=== PATIENT | female | born 1965 | race Caucasian/White ===

== ENCOUNTER → 2017-10-20 | Outpatient (CLI) | payer BC ==
--- NOTE | 2017-10-21 10:42 | MM ---
Reason for exam: screening (asymptomatic). Last mammogram was performed 1 year and 4 months ago. History: Family history of breast cancer in maternal aunt and breast cancer in aunt. Cyst aspiration of both breasts, 2005. Took hormonal contraceptives for 3 months. Physical Findings: A clinical breast exam by your physician is recommended on an annual basis and results should be correlated with mammographic findings. MG Screening Mammo w CAD Bilateral CC and MLO view(s) were taken. Prior study comparison: June 11, 2016, bilateral MG screening mammo w CAD. December 23, 2009, bilateral digital screening mammogram. The breast tissue is heterogeneously dense. This may lower the sensitivity of mammography. Finding: There are typically benign round calcifications in the anterior position of the right breast. There is no discrete abnormality. ASSESSMENT: Benign, BI-RAD 2 RECOMMENDATION: Routine screening mammogram of both breasts in 1 year.
== END | disposition home or self-care (01) ==
LOC: RADMAMWWP 14:55
PROVIDERS: ATTEND Family Medicine
DX: Z12.31 Encounter for screening mammogram for malignant neoplasm of breast (principal)
CPT/HCPCS: 77067

== ENCOUNTER 2017-11-09 08:58 | Day surgery (SDC) | payer BC ==
[2017-11-07 12:57] VITALS: BMI 23.6
--- NOTE | 2017-11-09 08:10 | P.GSHP ---
History of Present Illness H&P Date: 11/09/17 CHIEF COMPLAINT: Colon screen HISTORY OF PRESENT ILLNESS: The patient is a 52-year-old female who presents for colon screen. Lower endoscopy was offered for further evaluation and management. PAST MEDICAL HISTORY: Please see list. PAST SURGICAL HISTORY: Please see list. MEDICATIONS: Please see list. ALLERGIES: Please see list. SOCIAL HISTORY: No illicit drug use FAMILY HISTORY: No reports of Crohn disease or ulcerative colitis. REVIEW OF ORGAN SYSTEMS: CONSTITUTIONAL: No reports of fevers or chills. PHYSICAL EXAM: VITAL SIGNS: Stable GENERAL: Well-developed pleasant in no acute distress. HEENT: No scleral icterus. Extraocular movements grossly intact. Moist buccal mucosa. NECK: Supple without lymphadenopathy. CHEST: Unlabored respirations. Equal bilateral excursions. CARDIOVASCULAR: Regular rate and rhythm. Distal 2+ pulses. ABDOMEN: Soft, nontender, nondistended. MUSCULOSKELETAL: No clubbing, cyanosis, or edema. ASSESSMENT: 1. Colon screen. PLAN: 1. Recommend proceeding with a lower endoscopy Past Medical History Past Medical History: GERD/Reflux Additional Past Medical History / Comment(s): MIGRAINE HEADACHE History of Any Multi-Drug Resistant Organisms: None Reported Additional Past Surgical History / Comment(s): LAPAROTOMY, CYST REMOVED FROM FLANK AREA Past Anesthesia/Blood Transfusion Reactions: No Reported Reaction Smoking Status: Former smoker - Past Family History Mother Family Medical History: Cancer Additional Family Medical History / Comment(s): MELENOMA Medications and Allergies Home Medications Medication Instructions Recorded Confirmed Type Citalopram Hydrobromide [CeleXA] 40 mg PO HS 11/07/17 11/07/17 History Ibuprofen [Motrin] 200 mg PO Q6HR PRN 11/07/17 11/07/17 History Allergies Allergy/AdvReac Type Severity Reaction Status Date / Time Sulfa (Sulfonamide Allergy Swelling Verified 11/07/17 12:36 Antibiotics)
[~2017-11-09 08:58] MED LIST: LACTATED RINGERS 1,000 ML IV SCH; LIDOCAINE 1% 20 ML VIAL (10MG/ML) FOR IV START INTRADERMA PRN
[2017-11-09 09:39] VITALS: RESP 16; TEMP 97.3
[2017-11-09] MEDS ORDERED: PROPOFOL 10 MG/ML 20 ML VIAL IV ONE (10:14)
--- NOTE | 2017-11-09 10:41 | P.PCN ---
Date of Procedure: 11/09/17 Description of Procedure: PREOPERATIVE DIAGNOSIS: Colonoscopy screening. Family history of colon polyps, father POSTOPERATIVE DIAGNOSIS: Colonoscopy screening. Family history of colon polyps, father OPERATION: Colonoscopy to the ileocecal valve and appendiceal orifice. SURGEON: Dorie Carbajal MD. ANESTHESIA: MAC. INDICATIONS: The patient is a 52-year-old female who presents for her first colonoscopy screening. Benefits and risks were described and informed consent was obtained. DESCRIPTION OF PROCEDURE: The patient had undergone Gatorade, MiraLAX and Dulcolax prep. she had been brought into the operating room and laid in the left lateral decubitus position. After adequate intravenous sedation, the rectum was examined with 2% lidocaine jelly. No external hemorrhoids were encountered. The rectal tone was within normal limits. No lesions were palpated in the rectal vault. She had extremely redundant sigmoid colon requiring abdominal pressure including placing the patient in supine position to complete her procedure. An Olympus colonoscope was advanced until the ileocecal valve and appendiceal orifice were clearly viewed. The prep was excellent with clear visualization of the mucosal folds. The scope was removed with visualization of each mucosal fold. No scattered diverticulosis was encountered. No colonic polyps were found. No evidence of focal colitis was found. Retroflexion of the scope demonstrated grade 1 internal hemorrhoids without active bleeding or inflammation. The colon was desufflated. The patient had tolerated the procedure well. Withdrawal time was over 6 minutes. FINDINGS: Internal hemorrhoids, grade 1 No external prolapsed hemorrhoids. No arteriovenous malformations. No adenomatous polyps. No focal colitis. No sigmoid diverticulosis She had extremely redundant sigmoid colon requiring abdominal pressure including placing the patient in supine position to complete her procedure. RECOMMENDATIONS: Lower endoscopy every 5 years with family history of colon polyps or cancer, next 2022 Plan - Discharge Summary New Discharge Prescriptions: No Action Citalopram Hydrobromide [CeleXA] 40 mg PO HS Ibuprofen [Motrin] 200 mg PO Q6HR PRN PRN Reason: Pain Discharge Medication List Citalopram Hydrobromide [CeleXA] 40 mg PO HS 11/07/17 [History] Ibuprofen [Motrin] 200 mg PO Q6HR PRN 11/07/17 [History]
[2017-11-09 11:11] VITALS: BP 113/65; PULSE 74
== END 2017-11-09 11:44 | disposition home or self-care (01) ==
LOC: ORWHC2ENDO 08:58
PROVIDERS: ATTEND Surgery Plastic and Reconstructive Surgery
DX: Z12.11 Encounter for screening for malignant neoplasm of colon (principal); K64.0 First degree hemorrhoids; Q43.8 Other specified congenital malformations of intestine; Z83.71 Family history of colonic polyps; K21.9 Gastro-esophageal reflux disease without esophagitis; G43.909 Migraine, unspecified, not intractable, without status migrainosus; Z79.899 Other long term (current) drug therapy; Z88.2 Allergy status to sulfonamides; Z87.891 Personal history of nicotine dependence
CPT/HCPCS: 81025; J2704; G0105; 45378

== ENCOUNTER → 2018-05-16 | Outpatient (CLI) | payer BC ==
--- NOTE | 2018-05-16 11:56 | US ---
EXAMINATION TYPE: US abdomen complete DATE OF EXAM: 05/16/2018 COMPARISON: NONE CLINICAL HISTORY: R10.32 Left lower quadrant pain. Intermittent LLQ pain that is now gone EXAM MEASUREMENTS: Liver Length: 12.8 cm Gallbladder Wall: 0.2 cm CBD: 0.5 cm Spleen: 8.7 cm Right Kidney: 11.1 x 4.7 x 4.3 cm Left Kidney: 10.1 x 4.5 x 5.0 cm Pancreas: wnl Liver: wnl Gallbladder: wnl Evidence for sonographic Roy's sign: no CBD: wnl Spleen: wnl Right Kidney: 1.7cm inferior pole cyst Left Kidney: wnl Upper IVC: wnl Abd Aorta: wnl The liver is homogenous. The intrahepatic portion of the IVC and proximal abdominal aorta are within normal limits. There is no evidence of cholelithiasis. Common bile duct is unremarkable. The visu alized portions of the pancreas are homogenous. The spleen is unremarkable. Kidneys are symmetric a nd free of hydronephrosis. No renal lesions are seen. IMPRESSION: 1.7 cm left renal cyst, otherwise unremarkable abdominal ultrasound.
--- NOTE | 2018-05-16 12:04 | US ---
EXAMINATION TYPE: US pelvic complete DATE OF EXAM: 05/16/2018 COMPARISON: NONE CLINICAL HISTORY: R10.32 Left lower quadrant pain. intermittent LLQ pain, h/o endometriosis, left oop horectomy, not pain at time of exam, still having regular cycles, pending her cycle now TECHNIQUE: TA. Date of LMP: 04/06/2018 EXAM MEASUREMENTS: Uterus: 8.7 x 6.8 x 4.8 cm Endometrial Stripe: 1.1 cm Right Ovary: 2.4 x 1.8 x 1.4 cm Left Ovary: Surgically absent 1. Uterus: Retroverted wnl 2. Endometrium: wnl 3. Right Ovary: wnl 4. Left Ovary: Surgically absent 5. Bilateral Adnexa: wnl 6. Posterior cul-de-sac: wnl IMPRESSION: 1. Endometrium appears slightly thickened although suboptimally visualized on the transabdominal view only. Transvaginal could further assess this finding or sonohysterogram. 2. Surgical absence of the left ovary. No masses identified in the left adnexa. Right ovary appears u nremarkable.
== END | disposition home or self-care (01) ==
LOC: RADUSWWP 08:53
PROVIDERS: ATTEND Family Medicine
DX: N28.1 Cyst of kidney, acquired (principal); Z90.721 Acquired absence of ovaries, unilateral
CPT/HCPCS: 76700; 76856

== ENCOUNTER → 2018-10-31 | Outpatient (CLI) | payer BC ==
--- NOTE | 2018-11-01 10:46 | MM ---
Reason for exam: screening (asymptomatic). Last mammogram was performed 1 year ago. History: Family history of breast cancer in maternal aunt and breast cancer in aunt. Cyst aspiration of both breasts, 2005. Took hormonal contraceptives for 3 months. Physical Findings: A clinical breast exam by your physician is recommended on an annual basis and results should be correlated with mammographic findings. MG 3D Screening Mammo W/Cad Bilateral CC and MLO view(s) were taken. Prior study comparison: October 20, 2017, bilateral MG screening mammo w CAD. June 11, 2016, bilateral MG screening mammo w CAD. The breast tissue is heterogeneously dense. This may lower the sensitivity of mammography. There is no discrete abnormality. No significant changes when compared with prior studies. ASSESSMENT: Negative, BI-RAD 1 RECOMMENDATION: Routine screening mammogram of both breasts in 1 year.
== END | disposition home or self-care (01) ==
LOC: RADMAMWWP 12:43
PROVIDERS: ATTEND Family Medicine
DX: Z12.31 Encounter for screening mammogram for malignant neoplasm of breast (principal)
CPT/HCPCS: 77063; 77067

== ENCOUNTER → 2020-03-28 | Outpatient (CLI) | payer BC ==
--- NOTE | 2020-03-31 08:46 | MM ---
Reason for exam: screening (asymptomatic). Last mammogram was performed 1 year and 5 months ago. History: Family history of breast cancer in maternal aunt and breast cancer in aunt. Cyst aspiration of both breasts, 2005. Took hormonal contraceptives for 3 months. Physical Findings: A clinical breast exam by your physician is recommended on an annual basis and results should be correlated with mammographic findings. MG 3D Screening Mammo W/Cad Bilateral CC and MLO view(s) were taken. Prior study comparison: October 31, 2018, bilateral MG 3d screening mammo w/cad. October 20, 2017, bilateral MG screening mammo w CAD. The breast tissue is heterogeneously dense. This may lower the sensitivity of mammography. Benign appearing calcifications in the right breast. No significant changes when compared with prior studies. ASSESSMENT: Benign, BI-RAD 2 RECOMMENDATION: Routine screening mammogram of both breasts in 1 year.
== END | disposition home or self-care (01) ==
LOC: RADMAMWWP 10:08
PROVIDERS: ATTEND Family Medicine
DX: Z12.31 Encounter for screening mammogram for malignant neoplasm of breast (principal)
CPT/HCPCS: 77063; 77067

== ENCOUNTER → 2020-08-27 | Outpatient (CLI) | payer BC | END | disposition home or self-care (01) | LOC: LABWHC1 13:40 | PROVIDERS: ATTEND Family Medicine | DX: U07.1 COVID-19 (principal) | CPT/HCPCS: U0003; U0005 ==

== ENCOUNTER → 2021-12-15 | Outpatient (CLI) | payer BC ==
--- NOTE | 2021-12-16 07:47 | MM ---
Reason for Exam: Screening (asymptomatic). Last mammogram was performed 1 year(s) and 8 month(s) ago. Patient History: Menarche at age 14. First Full-Term at age 18. Postmenopausal. Hormonal Contraceptives for 3 months. 2005, Bilateral Cyst Aspiration. Maternal aunt had breast cancer under age 50. Maternal aunt had breast cancer. Maternal grandmother had breast cancer at or over age 50. Risk Values: Rebecca 5 year model risk: 0.8%. NCI Lifetime model risk: 5.2%. Prior Study Comparison: 10/20/2017 Bilateral Screening Mammogram, [facility]. 10/31/2018 Bilateral Screening Mammogram, [facility]. 03/28/2020 Bilateral Screening Mammogram, [facility]. Tissue Density: The breast tissue is heterogeneously dense. This may lower the sensitivity of mammography. Findings: Analyzed By CAD. There is no suspicious group of microcalcifications or new suspicious mass in either breast. Overall Assessment: Negative, BI-RAD 1 Management: Screening Mammogram of both breasts in 1 year. A clinical breast exam by your physician is recommended on an annual basis and results should be correlated with mammographic findings. Electronically signed and approved by: Popeye Perdue M.D. Radiologis
== END | disposition home or self-care (01) ==
LOC: RADMAMWWP 08:40
PROVIDERS: ATTEND Obstetrics & Gynecology
DX: Z12.31 Encounter for screening mammogram for malignant neoplasm of breast (principal); Z78.0 Asymptomatic menopausal state
CPT/HCPCS: 77063; 77067

== ENCOUNTER → 2023-06-15 | Outpatient (CLI) | payer OTHER ==
--- NOTE | 2023-06-15 08:31 | MM ---
Reason for Exam: Clinical finding. Last mammogram was performed 1 year(s) and 6 month(s) ago. Indicated Problems: Palpable abnormality of the left side for 9 Month(s). Patient History: Menarche at age 14. First Full-Term at age 18. Postmenopausal. Patient has history of breast feeding. Hormonal Contraceptives for 3 months. 2005, Bilateral Cyst Aspiration. Maternal aunt had breast cancer under age 50. Maternal aunt had breast cancer. Maternal grandmother had breast cancer at or over age 50. Risk Values: Rebecca 5 year model risk: 0.9%. NCI Lifetime model risk: 5.0%. Prior Study Comparison: 03/02/2005 Bilateral Screening Mammogram, [facility]. 05/18/2006 Bilateral Diagnostic Mammogram, [facility]. 05/18/2006 Left Diagnostic Ultrasound, [facility]. 12/23/2009 Bilateral Screening Mammogram, [facility]. 06/11/2016 Bilateral Screening Mammogram, [facility]. 10/20/2017 Bilateral Screening Mammogram, [facility]. 10/31/2018 Bilateral Screening Mammogram, [facility]. 03/28/2020 Bilateral Screening Mammogram, [facility]. 12/15/2021 Bilateral MG 3D screening mammo w/cad, [facility]. Tissue Density: The breast tissue is heterogeneously dense. This may lower the sensitivity of mammography. Findings: Analyzed By CAD. No evidence for distinct mass or distortion. No suspicious calcifications. Ultrasound of clinical area of concern left axilla. Overall Assessment: Incomplete: need additional imaging evaluation, BI-RAD 0 Management: Diagnostic Breast Ultrasound of the left breast. . Results were given to the patient verbally at the time of exam. Patient should continue monthly self-breast exams. A clinical breast exam by your physician is recommended on an annual basis. This exam should not preclude additional follow-up of suspicious palpable abnormalities. Note on Rebecca scores and lifetime risk: 1. A Rebecca score greater than 3% is considered moderate risk. If this is the case, consider specialist referral to assess eligibility for a risk reducing agent. 2. If overall lifetime risk for the development of breast cancer is 20% or higher, the patient may qualify for future screening with alternating mammogram and breast MRI. Electronically signed and approved by: Popeye Perdue M.D. Radiologis
--- NOTE | 2023-06-15 09:12 | USB ---
Reason for Exam: Clinical finding. Patient History: Menarche at age 14. First Full-Term at age 18. Postmenopausal. Patient has history of breast feeding. Hormonal Contraceptives for 3 months. 2005, Bilateral Cyst Aspiration. Maternal aunt had breast cancer under age 50. Maternal aunt had breast cancer. Maternal grandmother had breast cancer at or over age 50. Risk Values: Rebecca 5 year model risk: 0.9%. NCI Lifetime model risk: 5.0%. Technique: Method: Targeted. Prior Study Comparison: 10/31/2018 Bilateral Screening Mammogram, [facility]. 03/28/2020 Bilateral Screening Mammogram, [facility]. 12/15/2021 Bilateral MG 3D screening mammo w/cad, [facility]. Findings: The area of palpable concern of the left breast, the axilla of both breasts and the retroareolar of both breasts were scanned. Mildly prominent lymph node left axilla measures 1.2 x 0.8 cm.. Imaging of the right axilla reveals no evidence for adenopathy or mass. Overall Assessment: Probably benign, BI-RAD 3 Management: Diagnostic Breast Ultrasound of the left breast in 6 months. A clinical breast exam by your physician is recommended on an annual basis and results should be correlated with mammographic findings. This exam should not preclude additional follow-up of suspicious palpable abnormalities. Results were given to the patient verbally at the time of exam. Electronically signed and approved by: Popeye Perdue M.D. Radiologis
== END | disposition home or self-care (01) ==
LOC: RADMAMWWP 08:03
PROVIDERS: ATTEND Family Medicine
DX: R92.333 Mammographic heterogeneous density, bilateral breasts (principal); Z78.0 Asymptomatic menopausal state; Z80.3 Family history of malignant neoplasm of breast
CPT/HCPCS: 77062; 77066

== ENCOUNTER → 2023-12-19 | Outpatient (CLI) | payer OTHER ==
--- NOTE | 2023-12-19 09:16 | USB ---
Reason for Exam: Follow-up at short interval from prior study. Patient History: Menarche at age 14. First Full-Term at age 18. Postmenopausal. Patient has history of breast feeding. Hormonal Contraceptives for 3 months. 2005, Bilateral Cyst Aspiration. Maternal aunt had breast cancer under age 50. Maternal aunt had breast cancer. Maternal grandmother had breast cancer at or over age 50. Risk Values: Rebecca 5 year model risk: 0.9%. NCI Lifetime model risk: 5.0%. Technique: Method: Targeted. Prior Study Comparison: 03/28/2020 Bilateral Screening Mammogram, [facility]. 12/15/2021 Bilateral MG 3D screening mammo w/cad, [facility]. 06/15/2023 Bilateral MG 3D diag mammo w/cad [facility], [facility]. Findings: The area of palpable concern of the left breast, the axilla of the left breast and the retroareolar of the left breast were scanned. Mildly prominent lymph node left axilla is unchanged relative to the prior study and currently measures 1.3 x 0.6 cm versus 1.2 x 0.8 cm previously. Cortex is noted at 3 mm. Continued follow-up at 6 months advised. Overall Assessment: Probably benign, BI-RAD 3 Management: Diagnostic Breast Ultrasound of the left breast in 6 months. A clinical breast exam by your physician is recommended on an annual basis and results should be correlated with mammographic findings. This exam should not preclude additional follow-up of suspicious palpable abnormalities. Results were given to the patient verbally at the time of exam. Electronically signed and approved by: Popeye Perdue M.D. Radiologis
== END | disposition home or self-care (01) ==
LOC: RADUSWWP 08:40
PROVIDERS: ATTEND Family Medicine
DX: R92.8 Other abnormal and inconclusive findings on diagnostic imaging of breast (principal); Z78.0 Asymptomatic menopausal state; Z80.3 Family history of malignant neoplasm of breast; C50.912 Malignant neoplasm of unspecified site of left female breast

== ENCOUNTER → 2024-06-25 | Outpatient (CLI) | payer OTHER ==
--- NOTE | 2024-06-25 14:48 | USB ---
Reason for Exam: Follow-up at short interval from prior study. Patient History: Menarche at age 14. First Full-Term at age 18. Postmenopausal. Patient has history of breast feeding. Hormonal Contraceptives for 3 months. 2005, Bilateral Cyst Aspiration. Maternal aunt had breast cancer under age 50. Maternal aunt had breast cancer. Maternal grandmother had breast cancer at or over age 50. Risk Values: Rebecca 5 year model risk: 0.9%. NCI Lifetime model risk: 4.9%. Technique: Method: Targeted. Prior Study Comparison: 03/28/2020 Bilateral Screening Mammogram, [facility]. 12/15/2021 Bilateral MG 3D screening mammo w/cad, [facility]. 06/15/2023 Bilateral MG 3D diag mammo w/cad [facility], [facility]. Findings: The area of palpable concern of the left breast, the axilla of the left breast and the retroareolar of the left breast were scanned. In the subcutaneous region near is a slightly hypoechoic homogenous 0.9 x 0.4 x 0.4 cm nodule may be a small sebaceous cyst. Within the axillary region there is a 1.3 x 0.5 cm lymph node. The cortex 0.28 cm. This is been present previously. Overall Assessment: Benign, BI-RAD 2 Electronically signed and approved by: Bud Brody D.O. Radiologis
== END | disposition home or self-care (01) ==
LOC: RADUSWWP 14:10
PROVIDERS: ATTEND Family Medicine
DX: R92.8 Other abnormal and inconclusive findings on diagnostic imaging of breast (principal); Z78.0 Asymptomatic menopausal state; Z80.3 Family history of malignant neoplasm of breast